=== PATIENT | female | born 1955 | race Caucasian/White ===

== ENCOUNTER 2019-03-07 10:25 | Outpatient (CLI) | payer MEDICARE, BC ==
--- NOTE | 2019-03-07 11:19 | BD ---
EXAM: DEXA bone density examination HISTORY: Osteoporosis screening COMPARISON: August 04, 2014 FINDINGS: L1--bone mineral density 0.811 g/sq cm; T score -1.6. Z score 0.0 L2--bone mineral density 0.909 g/sq cm; T score -1.1; Z score 0.7 L3--bone mineral density 0.950 g/sq cm; T score -1.2; Z score 0.7 L4--bone mineral density 0.991 g/sq cm; T score -0.6, Z score 1.3 Total L1-L4--bone mineral density 0.921 g/sq cm; T score -1.1, Z score 0.7 Left femoral neck--bone mineral density0.645; T score -1.8, Z score -0.3 Total proximal left femur--bone mineral density 0.766; T score -1.4, Z score -0.2 This patient has a 10 year WHO fracture risk of a major osteoporotic fracture of 10% and of a hip fra cture of 1.4%. The bone mineral density of the left femoral neck region has declined from prior examination in 2013. IMPRESSION: Based on the WHO criteria, the patient's bone mineral density is consideredosteopenic. Th e patient is a moderate risk for fracture. The bone mineral density has declined from the comparison examination dated August 04, 2014.
--- NOTE | 2019-03-07 11:43 | MMO ---
Bilateral MAMMO Bilat Screen [facility]. CLINICAL HISTORY: Patient is 63 years old and is seen for screening. The patient has no family history of breast cancer. The patient has no personal history of cancer. The patient has a history of right Excisional Biopsy in December, - benign and left Excisional Biopsy in 2004 - benign. VIEWS: The views performed were: bilateral craniocaudal with tomosynthesis and bilateral mediolateral oblique with tomosynthesis. FILMS COMPARED: The present examination has been compared to prior imaging studies performed at [facility] on 06/24/2013, 08/04/2014, 08/07/2015, 09/24/2016 and 09/29/2017. MAMMOGRAM FINDINGS: There are scattered fibroglandular densities. There are no suspicious masses, suspicious calcifications, or new areas of architectural distortion. IMPRESSION: THERE IS NO MAMMOGRAPHIC EVIDENCE OF MALIGNANCY. A ROUTINE FOLLOW-UP MAMMOGRAM IN 1 YEAR IS RECOMMENDED. THE RESULTS OF THIS EXAM WERE SENT TO THE PATIENT. ACR BI-RADS Category 1 - Negative MAMMOGRAPHY NOTE: 1. A negative mammogram report should not delay a biopsy if a dominant of clinically suspicious mass is present. 2. Approximately 10% to 15% of breast cancers are not detected by mammography. 3. Adenosis and dense breasts may obscure an underlying neoplasm.
== END 2019-03-07 10:26 | disposition home or self-care (01) ==
LOC: BICMAMMO 10:25
PROVIDERS: ATTEND Obstetrics & Gynecology
DX: Z12.31 Encounter for screening mammogram for malignant neoplasm of breast (principal); Z13.820 Encounter for screening for osteoporosis; M81.0 Age-related osteoporosis without current pathological fracture; M85.89 Other specified disorders of bone density and structure, multiple sites; Z79.890 Hormone replacement therapy
CPT/HCPCS: 77063; 77067; 77080

== ENCOUNTER 2020-05-02 09:02 | Outpatient (CLI) | payer MEDICARE, BC ==
--- NOTE | 2020-05-02 09:49 | MMO ---
Bilateral MAMMO Bilat Screen [facility]. CLINICAL HISTORY: Patient is 64 years old and is seen for screening. The patient has no family history of breast cancer. The patient has no personal history of cancer. The patient has a history of right Excisional Biopsy in December, - benign and left Excisional Biopsy in 2004 - benign. VIEWS: The views performed were: bilateral craniocaudal with tomosynthesis and bilateral mediolateral oblique with tomosynthesis. FILMS COMPARED: The present examination has been compared to prior imaging studies performed at [facility] on 08/07/2015, 09/24/2016, 09/29/2017 and 03/07/2019. This study has been interpreted with the assistance of computer-aided detection. MAMMOGRAM FINDINGS: There are scattered fibroglandular densities. Finding 1: There are stable benign appearing calcifications seen in both breasts. Finding 2: There are stable benign appearing densities seen in both breasts. There are no suspicious masses, suspicious calcifications, or new areas of architectural distortion. IMPRESSION: THERE IS NO MAMMOGRAPHIC EVIDENCE OF MALIGNANCY. A ROUTINE FOLLOW-UP MAMMOGRAM IN 1 YEAR IS RECOMMENDED. THE RESULTS OF THIS EXAM WERE SENT TO THE PATIENT. ACR BI-RADS Category 2 - Benign finding MAMMOGRAPHY NOTE: 1. A negative mammogram report should not delay a biopsy if a dominant of clinically suspicious mass is present. 2. Approximately 10% to 15% of breast cancers are not detected by mammography. 3. Adenosis and dense breasts may obscure an underlying neoplasm. Reported by: BUNNY PRITCHETT MD Electonically Signed: [id number]
== END 2020-05-02 09:03 | disposition home or self-care (01) ==
LOC: BICMAMMO 09:02
PROVIDERS: ATTEND Obstetrics & Gynecology
DX: Z12.31 Encounter for screening mammogram for malignant neoplasm of breast (principal); Z91.89 Other specified personal risk factors, not elsewhere classified
CPT/HCPCS: 77063; 77067

== ENCOUNTER 2021-05-09 10:06 | Outpatient (CLI) | payer MEDICARE, BC | END 2021-05-09 10:07 | disposition home or self-care (01) | LOC: BICMAMMO 10:06 | PROVIDERS: ATTEND Obstetrics & Gynecology | DX: Z12.31 Encounter for screening mammogram for malignant neoplasm of breast (principal); Z91.89 Other specified personal risk factors, not elsewhere classified | CPT/HCPCS: 77063; 77067 ==

== ENCOUNTER 2022-05-12 09:57 | Outpatient (CLI) | payer MEDICARE, BC | END 2022-05-12 09:58 | disposition home or self-care (01) | LOC: BICMAMMO 09:57 | PROVIDERS: ATTEND Internal Medicine | DX: Z12.31 Encounter for screening mammogram for malignant neoplasm of breast (principal); Z91.89 Other specified personal risk factors, not elsewhere classified | CPT/HCPCS: 77063; 77067 ==